=== PATIENT | female | born 1985 | race Caucasian/White ===

== ENCOUNTER 2016-10-16 23:22 | Emergency (ER) | payer OTHER | END 2016-10-17 01:30 | disposition home or self-care (01) | LOC: ER 23:22 | DX: R10.11 Right upper quadrant pain (principal); R11.2 Nausea with vomiting, unspecified; Z79.899 Other long term (current) drug therapy; Z88.8 Allergy status to other drugs, medicaments and biological substances | CPT/HCPCS: 36415; 96361; 96374; 96375 ==

== ENCOUNTER 2016-10-20 04:32 | Emergency (ER) | payer OTHER | END 2016-10-20 09:11 | disposition home or self-care (01) | LOC: ER 04:32 | DX: K92.2 Gastrointestinal hemorrhage, unspecified (principal); E87.1 Hypo-osmolality and hyponatremia; Z88.8 Allergy status to other drugs, medicaments and biological substances; Z79.899 Other long term (current) drug therapy | CPT/HCPCS: 36415; 96361; 96374; 96375; 96376 ==